=== PATIENT | female | born 1935 | race Caucasian/White ===

== ENCOUNTER 2017-10-22 17:05 | Outpatient (CLI) | payer MEDICARE ==
[2017-10-22 18:10] LABS: Bilirubin Negative (Negative); Blood, Urine Trace (Negative); Glucose, Urine (Dipstick) Negative (Negative); Leukocyte Moderate (Negative); Nitrite Negative (Negative); Protein, Urine (Dipstick) Trace mg/dL (Neg-Trace); Urobilinogen 0.2 mg/dL (0.2-1.0); pH, Urine 6.5 (5.0-9.0)
[2017-10-22 18:14] LABS: Clarity Hazy (Clear)
[2017-10-22 18:19] LABS: Bacteria/HPF Rare-Few HPF (None Seen); Hyaline Casts/LPF 0-3 HYALINE CAST LPF (0-3 Hyaline); RBC/HPF 0-3 HPF (0-3)
== END 2017-10-22 17:06 | disposition home or self-care (01) ==
LOC: MADLAB 17:05
PROVIDERS: ATTEND Specialist
DX: Z87.440 Personal history of urinary (tract) infections (principal); Z79.01 Long term (current) use of anticoagulants
CPT/HCPCS: 81001; 87086

== ENCOUNTER 2017-10-25 14:13 | Outpatient (CLI) | payer MEDICARE ==
[2017-10-25 14:41] LABS: Anion Gap 18 mmol/L (10-20); BUN (Urea Nitrogen) 9 mg/dL (9.8-20.1); Calc. Creatinine Clearance 0 mL/min (70-130); Calcium 8.9 mg/dL (7.8-10.44); Carbon Dioxide 26 mmol/L (23-31); Chloride 102 mmol/L (98-107); Estimated GFR-MDRD 63; Glucose 126 mg/dL (83-110); Potassium 3.6 mmol/L (3.5-5.1); Sodium 142 mmol/L (136-145)
[2017-10-25 14:43] LABS: Digoxin 0.52 ng/mL (0.8-2.0)
== END 2017-10-25 14:14 | disposition home or self-care (01) ==
LOC: MADLAB 14:13
PROVIDERS: ATTEND Specialist
DX: I10 Essential (primary) hypertension (principal); I48.0 Paroxysmal atrial fibrillation
CPT/HCPCS: 80048; 80162